=== PATIENT | female | born 1970 | race Native Hawaiian/Other Pacific Islander ===

== ENCOUNTER 2018-03-14 13:02 | Outpatient (CLI) | payer BC | END 2018-03-14 19:35 | disposition home or self-care (01) | LOC: MAMMO 13:02 | DX: Z12.31 Encounter for screening mammogram for malignant neoplasm of breast (principal) ==

== ENCOUNTER 2019-04-04 15:55 | Outpatient (CLI) | payer BC | END 2019-04-04 19:56 | disposition home or self-care (01) | LOC: MAMMO 15:55 | DX: Z12.31 Encounter for screening mammogram for malignant neoplasm of breast (principal) ==

== ENCOUNTER 2020-10-17 13:52 | Outpatient (CLI) | payer BC | END 2020-10-17 20:57 | disposition home or self-care (01) | LOC: MAMMO 13:52 | PROVIDERS: ATTEND Obstetrics & Gynecology | DX: Z12.31 Encounter for screening mammogram for malignant neoplasm of breast (principal) ==

== ENCOUNTER 2021-05-09 22:46 | Emergency (ER) | payer BC ==
[~2021-05-09] VITALS: Ht 160 cm; Wt 83.0 kg
[2021-05-09 23:27] LABS: PLATELET COUNT 362 K/uL (152-353)
[2021-05-09 23:34] LABS: POTASSIUM 3.6 mmol/L (3.6-5.2)
[2021-05-10 01:35] VITALS: BP 103/53; TEMP 98.3
== END 2021-05-10 01:35 | disposition home or self-care (01) ==
LOC: ED 22:46
PROVIDERS: Emergency Medicine
DX: N13.2 Hydronephrosis with renal and ureteral calculous obstruction (principal)
CPT/HCPCS: 36415; 80048; 81000; 85027; 87086; 87088; 96374; 96375; 99284; J1885; J2175; J2405

== ENCOUNTER 2021-10-19 10:05 | Outpatient (CLI) | payer BC | END 2021-10-19 18:50 | disposition home or self-care (01) | LOC: MAMMO 10:05 | PROVIDERS: ATTEND Obstetrics & Gynecology | DX: M81.0 Age-related osteoporosis without current pathological fracture (principal); Z12.31 Encounter for screening mammogram for malignant neoplasm of breast ==

== ENCOUNTER 2022-02-02 18:34 | Emergency (ER) | payer BC ==
[~2022-02-02] VITALS: Ht 160 cm; Wt 81.2 kg
[2022-02-02 19:10] LABS: PLATELET COUNT 341 K/uL (152-353)
[2022-02-02 19:21] LABS: POTASSIUM 3.6 mmol/L (3.6-5.2)
[2022-02-02 22:05] VITALS: BP 147/82; TEMP 97.7
== END 2022-02-02 22:09 | disposition short-term general hospital (02) ==
LOC: ED 18:34
PROVIDERS: Emergency Medicine
DX: K35.890 Other acute appendicitis without perforation or gangrene (principal); K57.32 Diverticulitis of large intestine without perforation or abscess without bleeding
CPT/HCPCS: 36415; 80053; 81000; 85027; 96360; 96365; 96375; 99284; J1885; J2543

== ENCOUNTER 2022-11-09 10:59 | Outpatient (CLI) | payer BC | END 2022-11-09 19:10 | disposition home or self-care (01) | LOC: MAMMO 10:59 | PROVIDERS: ATTEND Obstetrics & Gynecology | DX: Z12.31 Encounter for screening mammogram for malignant neoplasm of breast (principal) ==